=== PATIENT | female | born 1940 | race Caucasian/White ===

== ENCOUNTER 2017-02-08 06:35 | Emergency (ER) | payer MEDICARE, BC ==
[2017-02-08 07:37] LABS: CHLORIDE,CL 104 mEq/L (98-106); SODIUM,NA 140 mEq/L (136-145)
[2017-02-08 07:41] VITALS: BP 100/50
--- NOTE | 2017-02-08 07:43 | EDM.PDOC ---
ED HPI GENERAL MEDICAL PROBLEM - General Chief Complaint: General Stated Complaint: syncope Time Seen by Provider: 02/08/17 07:00 Source of Information: Reports: EMS, Family () History Limitations: Reports: Altered Mental Status - History of Present Illness INITIAL COMMENTS - FREE TEXT/NARRATIVE: Pt was brought in by [facility]. states that she has advanced dementia that has been progressing. She had gotten up to the bathroom and fell or slid out of bed. He was attempting to get her up and she had to crawl to the bathroom and then was able to get up on the stool. She had become very fearful and then had been incontinent also. He was helping her get cleaned up and was standing at the sink and was "afraid" and told him she felt light headed and he helped her to the stool to sit and she was quite excited and then slowly fainted and slid off the toilet onto the floor. He wasn't able to get her up so called for assistance. She had spent the winter in there [facility] and 1.5 weeks ago they came back to their [place] home. has been trying to find someone that would be able to come in and help them and has found someone that would be able to come in 4 hour a day for 3-4 days a week. When in [place] they had more help that would come in. They have one granddaughter in [place] otherwise doesn't have any family as both of there children have . He is hoping to keep her home as long as possible and care for her. He is now considering going back to [place] as more help is available there and it would be easier for him. She was hospitalized there about 8 wees ago for pneumonia and was in the hospital for 9 days. Since then he feels that the dementia has progressed also. She is able to get up and walk and do most of her own cares. She is very fearful and gets scared frequently and needs reassurance according to . She currently denies any pain or feeling ill. Onset: gradual - Related Data Allergies Allergy/AdvReac Type Severity Reaction Status Date / Time No Known Allergies Allergy Verified 01/10/16 16:46 Home Meds: Home Meds Aspirin [Adult Low Dose Aspirin EC] 81 mg PO DAILY 02/07/14 [History] Hydrochlorothiazide 25 mg PO DAILY 02/07/14 [History] Lisinopril [Prinivil] 40 mg PO DAILY 02/07/14 [History] Simvastatin [Zocor] 20 mg PO DAILY 02/07/14 [History] Verapamil [Verelan] 120 mg PO DAILY 02/07/14 [History] Cholecalciferol (Vitamin D3) [Vitamin D3] 2,000 units PO DAILY 06/10/14 [History ] Donepezil [Aricept] 10 mg PO DAILY 01/10/16 [History] Latanoprost 1 drop EYEBOTH BEDTIME 01/10/16 [History] Pregabalin [Lyrica] 75 mg PO BID 01/10/16 [History] Rivastigmine [Exelon] 1.5 mg PO BIDM 01/10/16 [History] Past Medical History Cardiovascular History: Reports: Hypertension, Other (see below) Other Cardiovascular History: h/o stroke x5 (3 separate episodes) 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) Other OB/BYN History: h/o one and uterine surgery with possible ovary removal Neurological History: Reports: Alzheimers disease, Other (see below) Other Neuro History: h/o stroke - Past Surgical History HEENT Surgical History: Reports: None Cardiovascular Surgical History: Reports: None Neurological Surgical History: Reports: None Social & Family History - Family History Family Medical History: Noncontributory - Tobacco Use Smoking Status *Q: Never Smoker Second Hand Smoke Exposure: No - Recreational Drug Use Recreational Drug Use: No - Living Situation & Occupation Living situation: Reports: , with spouse Occupation: retired ED ROS GENERAL - Review of Systems Review Of Systems: See Below Constitutional: Reports: No Symptoms HEENT: Reports: No Symptoms Respiratory: Reports: No Symptoms Cardiovascular: Reports: No Symptoms GI/Abdominal: Reports: No Symptoms : Reports: No Symptoms Musculoskeletal: Reports: No Symptoms Skin: Reports: No Symptoms Neurological: Reports: Confusion. Denies: Dizziness, Headache, Syncope Psychiatric: Reports: Anxiety ED EXAM, GENERAL - Physical Exam Exam: See Below Exam Limited By: Altered Mental Status General Appearance: No Apparent Distress Ears: Normal External Exam, Normal Canal, Normal TMs Ear Exam: Bilateral Ear: Auricle Normal, Canal Normal, TM normal Nose: Normal Inspection Throat/Mouth: Normal Oropharynx, No Airway Compromise Head: Atraumatic, Normocephalic Neck: Normal Inspection, Supple, Non-Tender, Full Range of Motion Respiratory/Chest: No Respiratory Distress, Lungs Clear, Normal Breath Sounds, Chest Non-Tender Cardiovascular: Regular Rate, Rhythm, No Murmur GI/Abdominal: Normal Bowel Sounds, Soft, Non-Tender, No Organomegaly, No Mass Back Exam: Normal Inspection, Full Range of Motion Extremities: Normal Inspection, Normal Range of Motion, Non-Tender, No Pedal Edema, Normal Capillary Refill Neurological: Alert, Confused, Disoriented Psychiatric: Anxious Skin Exam: Warm, Dry, Intact, Normal Color Course - Orders/Labs/Meds Orders: Active Orders 24 hr Category Date Time Status BASIC METABOLIC PANEL,BMP [CHEM] Stat Lab 02/08/17 06:52 Ordered CREATINE KINASE,CK [CHEM] Stat Lab 02/08/17 06:52 Ordered LACTATE DEHYDROGENASE,LDH [CHEM] Stat Lab 02/08/17 06:52 Ordered TROPONIN I [CHEM] Stat Lab 02/08/17 06:52 Ordered EKG 12 Lead [EK] Routine Ther 02/08/17 06:52 Ordered Labs: Laboratory Tests 02/08/17 Range/Units 07:15 WBC 11.7 H (5.0-10.0) 10^3/uL RBC 3.97 L (4.00-5.50) 10^6/uL Hgb 11.9 L (12.0-16.0) g/dL Hct 36.5 L (37.0-47.0) % MCV 91.9 (82.0-94.0) fL MCH 30.0 (27.0-32.0) pg MCHC 32.6 L (33.0-38.0) g/dL RDW Coeff of Denae 14.4 (11.0-15.0) % Plt Count 275 (150-400) 10^3/uL Neut % (Auto) 77.2 (35-85) % Lymph % (Auto) 14.5 (10-55) % [place] % (Auto) 6.6 (0-16) % Eos % (Auto) 1.2 (0-5) % Baso % (Auto) 0.5 (0-3) % Neut # (Auto) 8.99 H (1.80-7.00) 10^3/uL Lymph # (Auto) 1.69 (1.00-4.80) 10^3/uL [place] # (Auto) 0.77 (0.00-0.80) 10^3/uL Eos # (Auto) 0.14 (0.00-0.45) 10^3/uL Baso # (Auto) 0.06 10^3/uL - Re-Assessments/Exams Free Text/Narrative Re-Assessment/Exam: 02/08/17 07:45 Discussed with her safety at home. He wants to tae her home with the help that he has arranged so far. He is looking for additional help if possible Is also considering returning to [place] as help is much more readily available to them there. Departure - Departure Time of Disposition: 07:47 Disposition: Home, Self-Care 01 Condition: fair Clinical Impression: Dementia Qualifiers: Dementia type: unspecified type Dementia behavioral disturbance: without behavioral disturbance Qualified Code(s): F03.90 - Unspecified dementia without behavioral disturbance Fall Qualifiers: Encounter type: initial encounter Qualified Code(s): W19.XXXA - Unspecified fall, initial encounter - Discharge Information Forms: ED Department Discharge Additional Instructions: Continue on current meds as ordered Recheck if any changes noted. - Problem List & Annotations (1) Dementia SNOMED Code(s): 35646749 Code(s): F03.90 - UNSPECIFIED DEMENTIA WITHOUT BEHAVIORAL DISTURBANCE Status: Acute Priority: High Current Visit: Yes Qualifiers: Dementia type: unspecified type Dementia behavioral disturbance: without behavioral disturbance Qualified Code(s): F03.90 - Unspecified dementia without behavioral disturbance (2) Fall SNOMED Code(s): 6626422, 691167503 Code(s): W19.XXXA - UNSPECIFIED FALL, INITIAL ENCOUNTER Status: Acute Priority: High Current Visit: Yes Qualifiers: Encounter type: initial encounter Qualified Code(s): W19.XXXA - Unspecified fall, initial encounter - Problem List Review Problem List Initiated/Reviewed/Updated: Yes - My Orders Last 24 Hours: My Active Orders 02/08/17 06:52 BASIC METABOLIC PANEL,BMP [CHEM] Stat CREATINE KINASE,CK [CHEM] Stat LACTATE DEHYDROGENASE,LDH [CHEM] Stat TROPONIN I [CHEM] Stat EKG 12 Lead [EK] Routine - Assessment/Plan Last 24 Hours: My Active Orders 02/08/17 06:52 BASIC METABOLIC PANEL,BMP [CHEM] Stat CREATINE KINASE,CK [CHEM] Stat LACTATE DEHYDROGENASE,LDH [CHEM] Stat TROPONIN I [CHEM] Stat EKG 12 Lead [EK] Routine
== END 2017-02-08 08:00 | disposition home or self-care (01) ==
LOC: CC.ED 06:35
DX: F03.90 Unspecified dementia, unspecified severity, without behavioral disturbance, psychotic disturbance, mood disturbance, and anxiety (principal); I10 Essential (primary) hypertension; Z79.82 Long term (current) use of aspirin; Z79.899 Other long term (current) drug therapy; Z98.890 Other specified postprocedural states; W19.XXXA Unspecified fall, initial encounter
CPT/HCPCS: 36415; 80048; 82550; 83615; 84484; 85025; 93005; 93010; 99284

== ENCOUNTER 2017-04-24 18:52 | Inpatient (IN) | payer MEDICARE, BC ==
--- NOTE | 2017-04-24 19:47 | EDM.PDOC ---
ED HPI GENERAL MEDICAL PROBLEM - General Chief Complaint: General Stated Complaint: unresponsive episode with shaking Time Seen by Provider: 04/24/17 19:18 Source of Information: Reports: EMS, Family History Limitations: Reports: Altered Mental Status (patient confused due to dementia) - History of Present Illness INITIAL COMMENTS - FREE TEXT/NARRATIVE: Patient presents to ED per EMS with concerns of "shaking". relates she was lying down for her nap today and had slept for 2 hours which is not all that unusual for her. He found her to be shaking uncontrollably to the point where he couldn't stand her or get her out of bed himself so he called EMS. She has had a mild cough as of late, he was unaware of her having a fever. She was in bed with a heating blanket set at "3" and a quilt. House does have air conditioning. She does "look like her normal self now". Temp was 101 on arrival. She has a history of "many strokes" which he states has led to her dementia. She has been drinking fluids well. Did eat her lunch earlier today. Has issues with incontinence, wears a pad at night. Onset: Today, Sudden Duration: Hour(s): Location: Reports: Generalized Severity: Mild Associated Symptoms: Reports: Confusion, Cough, Fever/Chills, Weakness. Denies : Nausea/Vomiting, Seizure, Shortness of Breath, Syncope - Related Data Allergies Allergy/AdvReac Type Severity Reaction Status Date / Time No Known Allergies Allergy Verified 04/24/17 18:59 Home Meds: Home Meds Hydrochlorothiazide 25 mg PO BEDTIME 02/07/14 [History] Lisinopril [Prinivil] 40 mg PO BEDTIME 02/07/14 [History] Simvastatin [Zocor] 20 mg PO BEDTIME 02/07/14 [History] Verapamil [Verelan] 120 mg PO BEDTIME 02/07/14 [History] Cholecalciferol (Vitamin D3) [Vitamin D3] 2,000 units PO DAILY PRN 06/10/14 [ History] Donepezil [Aricept] 10 mg PO DAILY 01/10/16 [History] Pregabalin [Lyrica] 75 mg PO BID 01/10/16 [History] Rivastigmine [Exelon] 1.5 mg PO BIDM 04/12/16 [History] Past Medical History HEENT History: Reports: Cataract Cardiovascular History: Reports: High Cholesterol, Hypertension, Other (See Below) Other Cardiovascular History: h/o stroke x5 (3 separate episodes) Gastrointestinal History: Reports: Chronic Constipation, GERD 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) Other OB/BYN History: dense breasts Musculoskeletal History: Reports: Other (See Below) Other Musculoskeletal History: chronic back pain, chronic left hip pain, chronic neck pain Neurological History: Reports: CVA, Headaches, Chronic Other Neuro History: h/o stroke Psychiatric History: Reports: Dementia - Past Surgical History HEENT Surgical History: Reports: None Female Surgical History: Reports: Section, Hysterectomy, Oophorectomy Social & Family History - Family History Family Medical History: Noncontributory - Tobacco Use Smoking Status *Q: Never Smoker Second Hand Smoke Exposure: No - Recreational Drug Use Recreational Drug Use: No - Living Situation & Occupation Living situation: Reports: , with Spouse Occupation: Retired ED ROS GENERAL - Review of Systems Review Of Systems: See Below (obtained by ) Constitutional: Reports: Fever, Chills, Malaise, Weakness, Fatigue HEENT: Denies: Ear Pain, Sinus Problem, Vertigo Respiratory: Reports: Cough. Denies: Shortness of Breath Cardiovascular: Denies: Edema, Syncope Endocrine: Reports: Fatigue GI/Abdominal: Denies: Abdominal Pain, Constipation, Diarrhea, Nausea, Vomiting : Reports: Incontinence. Denies: Frequency Musculoskeletal: Reports: Neck Pain (chronic), Back Pain (chronic) Skin: Reports: No Symptoms Neurological: Reports: Confusion (chronic) Psychiatric: Reports: Other (history of dementia) ED EXAM, GENERAL - Physical Exam Exam: See Below Exam Limited By: Altered Mental Status General Appearance: Alert, WD/WN, No Apparent Distress Ears: Normal External Exam, Normal TMs Nose: Normal Inspection, Normal Mucosa, No Blood Throat/Mouth: Normal Inspection, Normal Oropharynx Head: Normocephalic Neck: Normal Inspection, Supple, Non-Tender Respiratory/Chest: No Respiratory Distress, Lungs Clear, Normal Breath Sounds Cardiovascular: Regular Rate, Rhythm GI/Abdominal: Normal Bowel Sounds, Soft, Non-Tender Extremities: Normal Inspection, Normal Range of Motion Neurological: Alert, Disoriented, Memory Loss Remote Events (chronic dementia), Memory Loss Recent Events Psychiatric: Normal Affect, Normal Mood Skin Exam: Warm, Dry Course - Vital Signs Last Recorded V/S: Last Vital Signs Temp 99.4 F 04/24/17 19:56 Pulse 95 04/24/17 18:54 Resp 20 04/24/17 18:54 BP 136/75 04/24/17 18:54 Pulse Ox 94 L 04/24/17 18:54 - Orders/Labs/Meds Orders: Active Orders 24 hr Category Date Time Status Chest 2V [CR] Stat Exams 04/24/17 19:28 Taken CULTURE BLOOD [BC] Stat Lab 04/24/17 20:19 Ordered CULTURE URINE [RM] Routine Lab 04/24/17 20:14 Received UA W/MICROSCOPIC [URIN] Stat Lab 04/24/17 19:27 Ordered Labs: Laboratory Tests 04/24/17 04/24/17 Range/Units 19:27 19:28 WBC 11.3 H (5.0-10.0) 10^3/uL RBC 4.38 (4.00-5.50) 10^6/uL Hgb 13.2 (12.0-16.0) g/dL Hct 39.7 (37.0-47.0) % MCV 90.6 (82.0-94.0) fL MCH 30.1 (27.0-32.0) pg MCHC 33.2 (33.0-38.0) g/dL RDW Coeff of Denae 14.6 (11.0-15.0) % Plt Count 247 (150-400) 10^3/uL Neut % (Auto) 84.3 (35-85) % Lymph % (Auto) 6.7 L (10-55) % [place] % (Auto) 7.5 (0-16) % Eos % (Auto) 1.2 (0-5) % Baso % (Auto) 0.3 (0-3) % Neut # (Auto) 9.51 H (1.80-7.00) 10^3/uL Lymph # (Auto) 0.75 L (1.00-4.80) 10^3/uL Bailey # (Auto) 0.84 H (0.00-0.80) 10^3/uL Eos # (Auto) 0.14 (0.00-0.45) 10^3/uL Baso # (Auto) 0.03 10^3/uL Sodium 139 (136-145) mEq/L Potassium 4.5 (3.5-5.0) mEq/L Chloride 103 (98-106) mEq/L Carbon Dioxide 27 (21-32) mmol/L BUN 27 H D (7-18) mg/dL Creatinine 1.5 H (0.6-1.0) mg/dL Est Cr Clr Drug Dosing 27.55 mL/min Estimated GFR (MDRD) 34 L (>=60) mL/min Glucose 117 H (75-99) mg/dL Calcium 8.9 (8.4-10.1) mg/dL Total Bilirubin 0.4 (0.0-1.0) mg/dL AST 12 L (15-37) U/L ALT 21 (12-78) U/L Alkaline Phosphatase 109 (46-116) U/L C-Reactive Protein 2.1 H (0.2-0.8) mg/dL Total Protein 7.3 (6.4-8.2) g/dL Albumin 3.8 (3.4-5.0) g/dL Departure - Departure Time of Disposition: 20:20 Disposition: Refer to Observation Condition: Fair Clinical Impression: UTI (urinary tract infection), Fever - Discharge Information Forms: ED Department Discharge - Problem List & Annotations (1) UTI (urinary tract infection) SNOMED Code(s): 58173480 Code(s): N39.0 - URINARY TRACT INFECTION, SITE NOT SPECIFIED Status: Acute Priority: High Current Visit: Yes Qualifiers: Encounter type: initial encounter (2) Palliative care patient SNOMED Code(s): 955602057 Code(s): Z51.5 - ENCOUNTER FOR PALLIATIVE CARE Status: Acute Priority: High Current Visit: Yes (3) Fever SNOMED Code(s): 729550165 Code(s): R50.9 - FEVER, UNSPECIFIED Status: Acute Priority: High Current Visit: Yes - Problem List Review Problem List Initiated/Reviewed/Updated: Yes - My Orders Last 24 Hours: My Active Orders 04/24/17 19:27 UA W/MICROSCOPIC [URIN] Stat 04/24/17 19:28 Chest 2V [CR] Stat 04/24/17 20:14 CULTURE URINE [RM] Routine 04/24/17 20:19 CULTURE BLOOD [BC] Stat - Assessment/Plan Admission H&P: Please use this note as an admission H&P Last 24 Hours: My Active Orders 04/24/17 19:27 UA W/MICROSCOPIC [URIN] Stat 04/24/17 19:28 Chest 2V [CR] Stat 04/24/17 20:14 CULTURE URINE [RM] Routine 04/24/17 20:19 CULTURE BLOOD [BC] Stat Assessment:: UTI Palliative Care Fever Plan: Admit to observation to Dr. Bradley for UTI. Temp down now from 101 to 99. Blood cultures done in ER. Will start IV fluids, IV Levaquin. Repeat labs in am.
[2017-04-24] MEDS ORDERED: Ondansetron 4 MG/2 ML SDV IV PRN (20:42)
[2017-04-24] MEDS ORDERED: Ondansetron 4 MG Tab.DIS PO PRN (20:42)
[2017-04-24] MEDS ORDERED: Sodium Chloride 0.9% 10 ML Syringe FLUSH PRN (20:42)
[2017-04-24] MEDS ORDERED: Temazepam 15 MG Cap PO PRN (20:42)
[2017-04-24] MEDS ORDERED: Levofloxacin/Dextrose 5%-Water 500 MG in Premix Bag 1 BAG IV ONE (20:42)
[2017-04-24] MEDS ORDERED: Magnesium Hydroxide 400 MG/5 ML Susp 30 ML Cup PO PRN (20:42)
[2017-04-24] MEDS ORDERED: Lactated Ringers 1,000 ML IV SCH (20:45)
[2017-04-24] MEDS ORDERED: Enoxaparin 30 MG/0.3 ML Syringe SUBCUT SCH (21:00)
[2017-04-24] MEDS: Hydrochlorothiazide 25 MG Tab PO SCH (21:14)
[2017-04-24] MEDS: Pregabalin 25 MG Cap PO SCH (21:14)
[2017-04-24] MEDS: Simvastatin 20 MG Tab PO SCH (21:15)
[2017-04-24] MEDS: Acetaminophen 325 MG Tab PO PRN (21:15)
[2017-04-24] MEDS: Lisinopril 20 MG Tab PO SCH (21:15)
[2017-04-25] MEDS: Acetaminophen 325 MG Tab PO PRN ×2 (04:42→19:52)
[2017-04-25] MEDS: Donepezil 5 MG Tab PO SCH (07:54)
[2017-04-25] MEDS: Pregabalin 25 MG Cap PO SCH ×2 (07:54→19:40)
[2017-04-25] MEDS ORDERED: Cholecalciferol (Vitamin D3) 1,000 Unit Tab PO PRN (08:00)
[2017-04-25] MEDS: RIVASTIGMINE 1.5 MG PO SCH ×2 (10:17→17:33)
[2017-04-25] MEDS: Albuterol/Ipratropium 3.0-0.5 MG/3 ML Neb Soln NEB SCH ×3 (10:17→20:37)
[2017-04-25] MEDS: Lisinopril 20 MG Tab PO SCH (19:40)
[2017-04-25] MEDS: Hydrochlorothiazide 25 MG Tab PO SCH (19:40)
[2017-04-25] MEDS: Simvastatin 20 MG Tab PO SCH (19:41)
[2017-04-25] MEDS ORDERED: Enoxaparin 30 MG/0.3 ML Syringe SUBCUT SCH (20:00)
[2017-04-25] MEDS ORDERED: VERAPAMIL 120 MG PO SCH (20:00)
[2017-04-25] MEDS ORDERED: Levofloxacin/Dextrose 5%-Water 250 MG in Premix Bag 1 BAG IV SCH (20:00)
--- NOTE | 2017-04-25 22:45 | PCM.PN ---
[id number] Status: Reports: Pain Controlled, Tolerating Diet - Review of Systems General: Reports: Fever, Weakness, Fatigue HEENT: Reports: No Symptoms Pulmonary: Reports: Cough. Denies: Shortness of Breath, Wheezing Cardiovascular: Denies: Chest Pain, Edema, Lightheadedness Gastrointestinal: Denies: Abdominal Pain, Nausea, Vomiting Genitourinary: Reports: Incontinence Musculoskeletal: Reports: No Symptoms Skin: Reports: No Symptoms Neurological: Reports: Confusion Psychiatric: Reports: Confusion (pleasantly confused) - Patient Data Vitals - Most Recent: Last Vital Signs Temp 98.1 F 04/25/17 22:00 Pulse 78 04/25/17 19:51 Resp 18 04/25/17 19:51 BP 127/56 L 04/25/17 19:51 Pulse Ox 93 L 04/25/17 19:51 Weight - Most Recent: 153 lb Lab Results Last 24 Hours: Laboratory Results - last 24 hr 04/25/17 04/25/17 04/25/17 Range/Units 07:45 07:45 07:50 WBC 10.6 H (5.0-10.0) 10^3/uL RBC 4.01 (4.00-5.50) 10^6/uL Hgb 12.2 (12.0-16.0) g/dL Hct 36.4 L (37.0-47.0) % MCV 90.8 (82.0-94.0) fL MCH 30.4 (27.0-32.0) pg MCHC 33.5 (33.0-38.0) g/dL RDW Coeff of Denae 14.7 (11.0-15.0) % Plt Count 230 (150-400) 10^3/uL Neut % (Auto) 72.6 (35-85) % Lymph % (Auto) 15.9 (10-55) % [place] % (Auto) 10.1 (0-16) % Eos % (Auto) 1.1 (0-5) % Baso % (Auto) 0.3 (0-3) % Neut # (Auto) 7.67 H (1.80-7.00) 10^3/uL Lymph # (Auto) 1.68 (1.00-4.80) 10^3/uL [place] # (Auto) 1.07 H (0.00-0.80) 10^3/uL Eos # (Auto) 0.12 (0.00-0.45) 10^3/uL Baso # (Auto) 0.03 10^3/uL Sodium 136 (136-145) mEq/L Potassium 4.1 (3.5-5.0) mEq/L Chloride 102 (98-106) mEq/L Carbon Dioxide 26 (21-32) mmol/L BUN 26 H (7-18) mg/dL Creatinine 1.5 H (0.6-1.0) mg/dL Est Cr Clr Drug Dosing 27.55 mL/min Estimated GFR (MDRD) 34 L (>=60) mL/min Glucose 106 H (75-99) mg/dL Calcium 8.5 (8.4-10.1) mg/dL C-Reactive Protein 6.8 H (0.2-0.8) mg/dL [id number] Pept 144 (0-1000) pg/nL Med Orders - Current: Current Medications Acetaminophen (Tylenol) 650 mg PO Q4H PRN PRN Reason: Pain (Mild 1-3)/fever Last Admin: 04/25/17 19:52 Dose: 650 mg Albuterol/Ipratropium (Duoneb 3.0-0.5 Mg/3 Ml) 3 ml NEB TIDRT [facility] Last Admin: 04/25/17 20:37 Dose: 3 ml Cholecalciferol (Vitamin D3) 2,000 units PO DAILY PRN PRN Reason: DIETARY SUPPLEMENT Donepezil HCl (Aricept) 10 mg PO DAILY [facility] Last Admin: 04/25/17 07:54 Dose: 10 mg Enoxaparin Sodium (Lovenox) 30 mg SUBCUT Q24H [facility] Last Admin: 04/25/17 19:41 Dose: 30 mg Hydrochlorothiazide (Hydrochlorothiazide) 25 mg PO BEDTIME [facility] Last Admin: 04/25/17 19:40 Dose: 25 mg Levofloxacin/Dextrose 250 mg/ (Premix) 50 mls @ 50 mls/hr IV Q24H [facility] Last Admin: 04/25/17 19:43 Dose: 50 mls/hr Lisinopril (Prinivil) 40 mg PO BEDTIME [facility] Last Admin: 04/25/17 19:40 Dose: 40 mg Magnesium Hydroxide (Milk Of Magnesia) 30 ml PO Q12H PRN PRN Reason: Constipation Ptom(Rivastigmine [ (Exelon] 1.5 Mg)) 1.5 mg PO BIDM [facility] Last Admin: 04/25/17 17:33 Dose: 1.5 mg Ptom (Verapamil Er (120 Mg)) 120 mg PO BEDTIME [facility] Last Admin: 04/25/17 19:42 Dose: 120 mg Ondansetron HCl (Zofran Odt) 4 mg PO Q4H PRN PRN Reason: nausea, able to take PO Ondansetron HCl (Zofran) 4 mg IV Q4H PRN PRN Reason: Nausea/Vomiting Pregabalin (Lyrica) 75 mg PO BID [facility] Last Admin: 04/25/17 19:40 Dose: 75 mg Simvastatin (Zocor) 20 mg PO BEDTIME [facility] Last Admin: 04/25/17 19:41 Dose: 20 mg Sodium Chloride (Saline Flush) 10 ml FLUSH ASDIRECTED PRN PRN Reason: Keep Vein Open Temazepam (Restoril) 15 mg PO BEDTIME PRN PRN Reason: Sleep Discontinued Medications Enoxaparin Sodium (Lovenox) 30 mg SUBCUT Q24H [facility] Last Admin: 04/24/17 21:18 Dose: 30 mg Lactated Ringer's (Ringers, Lactated) 1,000 mls @ 75 mls/hr IV ASDIRECTED [facility] Levofloxacin/Dextrose 500 mg/ (Premix) 100 mls @ 100 mls/hr IV ONETIME ONE Stop: 04/24/17 21:41 Last Admin: 04/24/17 21:16 Dose: 100 mls/hr - Exam General: Alert. No: Oriented HEENT: Mucous Membr. Moist/[place] Neck: Supple Lungs: Rhonchi Cardiovascular: Regular Rate, Regular Rhythm GI/Abdominal Exam: Normal Bowel Sounds, Soft, Non-Tender - Problem List & Annotations (1) UTI (urinary tract infection) SNOMED Code(s): 10842721 Code(s): N39.0 - URINARY TRACT INFECTION, SITE NOT SPECIFIED Status: Acute Priority: High Current Visit: Yes Qualifiers: Encounter type: initial encounter (2) Palliative care patient SNOMED Code(s): 227167798 Code(s): Z51.5 - ENCOUNTER FOR PALLIATIVE CARE Status: Acute Priority: High Current Visit: Yes (3) Fever SNOMED Code(s): 404595904 Code(s): R50.9 - FEVER, UNSPECIFIED Status: Acute Priority: High Current Visit: Yes (4) Dementia SNOMED Code(s): 78355228 Code(s): F03.90 - UNSPECIFIED DEMENTIA WITHOUT BEHAVIORAL DISTURBANCE Status: Chronic Priority: High Current Visit: No Qualifiers: Dementia type: unspecified type Dementia behavioral disturbance: without behavioral disturbance Qualified Code(s): F03.90 - Unspecified dementia without behavioral disturbance - Problem List Review Problem List Initiated/Reviewed/Updated: Yes - My Orders Last 24 Hours: My Active Orders 04/25/17 08:00 Cholecalciferol (Vitamin D3) [Vitamin D3] 2,000 units PO DAILY PRN Donepezil [Aricept] 10 mg PO DAILY Rivastigmine [Exelon] 1.5 mg PO BIDM 04/25/17 08:59 RT Aerosol Therapy [RC] 0900,1400,2100 04/25/17 09:00 Albuterol/Ipratropium [DuoNeb 3.0-0.5 MG/3 ML] 3 ml NEB TIDRT 04/25/17 20:00 Enoxaparin [Lovenox] 30 mg SUBCUT Q24H Verapamil [Verelan] 120 mg PO BEDTIME - Assessment Assessment:: UTI Palliative Care Fever Dementia Cough - Plan Plan:: Patient remains pleasantly confused. Does not offer any complaints. Cough is more notable and moist this am. Rhonchi noted in right base. No edema. Remained afebrile through night. Tolerated breakfast this am. IV fluids stopped this am due to increased cough. Will draw ProBNP this am. Start DuoNebs. Continue Levaquin to cover for potential pneumonia as well. Reevaluate in am.
[2017-04-26] MEDS: Donepezil 5 MG Tab PO SCH (08:04)
[2017-04-26] MEDS: Pregabalin 25 MG Cap PO SCH (08:04)
[2017-04-26] MEDS: RIVASTIGMINE 1.5 MG PO SCH (08:05)
[2017-04-26] MEDS: Albuterol/Ipratropium 3.0-0.5 MG/3 ML Neb Soln NEB SCH (08:05)
[2017-04-26 11:50] VITALS: BP 110/47
--- NOTE | 2017-04-28 21:01 | PCM.DCSUM1 ---
Discharge Summary - Hospital Course Free Text/Narrative:: Patient presented to ED per EMS due to unresponsive episode at home. relates she was difficult to arouse at home and had significant shaking. Was unable to transfer her and was concerned so presented to ED. Was found to have fever of 101. WBC 11.3, CRP 2.1. Urine positive. Did admit to Dr. Bradley. Started IV Levaquin and fluids. Is confused per norm due to her dementia but is cooperative. - Discharge Data Discharge Date: 04/26/17 Discharge Disposition: Home, Self-Care 01 Condition: Fair - Discharge Diagnosis/Problem(s) (1) UTI (urinary tract infection) SNOMED Code(s): 64371973 ICD Code: N39.0 - URINARY TRACT INFECTION, SITE NOT SPECIFIED Status: Acute Priority: High Qualifiers: Encounter type: initial encounter (2) Palliative care patient SNOMED Code(s): 496489696 ICD Code: Z51.5 - ENCOUNTER FOR PALLIATIVE CARE Status: Acute Priority: High (3) Fever SNOMED Code(s): 853358731 ICD Code: R50.9 - FEVER, UNSPECIFIED Status: Acute Priority: High (4) Dementia SNOMED Code(s): 30351128 ICD Code: F03.90 - UNSPECIFIED DEMENTIA WITHOUT BEHAVIORAL DISTURBANCE Status: Chronic Priority: High Qualifiers: Dementia type: unspecified type Dementia behavioral disturbance: without behavioral disturbance Qualified Code(s): F03.90 - Unspecified dementia without behavioral disturbance - Patient Summary/Data Complications: none Hospital Course: Hospital stay uneventful. She did have a positive response to antibiotics. No further fevers. Tolerating her meal intake. Urine culture did grow enterobacter that was susceptible to Levaquin. Does have assistance for 4 hours a day at home as well as her and will continue to have that once back at home. Does ambulate well with staff without balance issues. Vitals stable. WBC did drop to 10.6, CRP did increase to 6.8. Developed a deep cough while inpatient. Chest xray unremarkable. BNP normal. DuoNebs added during stay and responded well. - Patient Instructions Diet: Heart Healthy Diet Activity: As Tolerated Notify Provider of: Fever, Increased Pain, Nausea and/or Vomiting - Discharge Plan Prescriptions/Med Rec: Levofloxacin [Levaquin] 500 mg PO Q24H #7 tablet Home Medications: Home Meds Hydrochlorothiazide 25 mg PO BEDTIME 02/07/14 [History] Lisinopril [Prinivil] 40 mg PO BEDTIME 02/07/14 [History] Simvastatin [Zocor] 20 mg PO BEDTIME 02/07/14 [History] Verapamil [Verelan] 120 mg PO BEDTIME 02/07/14 [History] Cholecalciferol (Vitamin D3) [Vitamin D3] 2,000 units PO DAILY PRN 06/10/14 [ History] Donepezil [Aricept] 10 mg PO DAILY 01/10/16 [History] Pregabalin [Lyrica] 75 mg PO BID 01/10/16 [History] Rivastigmine [Exelon] 1.5 mg PO BIDM 01/10/16 [History] Levofloxacin [Levaquin] 500 mg PO Q24H #7 tablet 04/26/17 [Rx] Forms: ED Department Discharge Referrals: Bipin Red PA-C [Family Provider] - (Follow up with Jayme Red in 10 days) - Discharge Summary/Plan Comment DC Time >30 min.: No Discharge Summary/Plan Comment: Discharge home. Continue Levaquin. Follow up with Dr. Bradley in 2 weeks. - General Info Date of Service: 04/26/17 Admission Dx/Problem (Free Text: UTI Functional Status: Reports: Tolerating Diet, Ambulating - Review of Systems General: Reports: Weakness. Denies: Fever, Fatigue HEENT: Reports: No Symptoms Pulmonary: Reports: Cough. Denies: Shortness of Breath, Sputum Cardiovascular: Denies: Chest Pain Gastrointestinal: Denies: Abdominal Pain Genitourinary: Reports: Incontinence Musculoskeletal: Reports: No Symptoms Neurological: Reports: Confusion Psychiatric: Reports: Confusion - Patient Data Vitals - Most Recent: Last Vital Signs Temp 97.5 F 04/26/17 11:49 Pulse 71 04/26/17 11:49 Resp 16 04/26/17 11:49 BP 110/47 L 04/26/17 11:49 Pulse Ox 97 04/26/17 11:49 Weight - Most Recent: 153 lb Med Orders - Current: Current Medications Discontinued Medications Acetaminophen (Tylenol) 650 mg PO Q4H PRN PRN Reason: Pain (Mild 1-3)/fever Last Admin: 04/25/17 19:52 Dose: 650 mg Albuterol/Ipratropium (Duoneb 3.0-0.5 Mg/3 Ml) 3 ml NEB TIDRT [facility] Last Admin: 04/26/17 08:05 Dose: 3 ml Cholecalciferol (Vitamin D3) 2,000 units PO DAILY PRN PRN Reason: DIETARY SUPPLEMENT Donepezil HCl (Aricept) 10 mg PO DAILY [facility] Last Admin: 04/26/17 08:04 Dose: 10 mg Enoxaparin Sodium (Lovenox) 30 mg SUBCUT Q24H [facility] Last Admin: 04/24/17 21:18 Dose: 30 mg Enoxaparin Sodium (Lovenox) 30 mg SUBCUT Q24H [facility] Last Admin: 04/25/17 19:41 Dose: 30 mg Hydrochlorothiazide (Hydrochlorothiazide) 25 mg PO BEDTIME [facility] Last Admin: 04/25/17 19:40 Dose: 25 mg Lactated Ringer's (Ringers, Lactated) 1,000 mls @ 75 mls/hr IV ASDIRECTED [facility] Levofloxacin/Dextrose 500 mg/ (Premix) 100 mls @ 100 mls/hr IV ONETIME ONE Stop: 04/24/17 21:41 Last Admin: 04/24/17 21:16 Dose: 100 mls/hr Levofloxacin/Dextrose 250 mg/ (Premix) 50 mls @ 50 mls/hr IV Q24H [facility] Last Admin: 04/25/17 19:43 Dose: 50 mls/hr Lisinopril (Prinivil) 40 mg PO BEDTIME [facility] Last Admin: 04/25/17 19:40 Dose: 40 mg Magnesium Hydroxide (Milk Of Magnesia) 30 ml PO Q12H PRN PRN Reason: Constipation Ptom(Rivastigmine [ (Exelon] 1.5 Mg)) 1.5 mg PO BIDM [facility] Last Admin: 04/26/17 08:05 Dose: 1.5 mg Ptom (Verapamil Er (120 Mg)) 120 mg PO BEDTIME [facility] Last Admin: 04/25/17 19:42 Dose: 120 mg Ondansetron HCl (Zofran Odt) 4 mg PO Q4H PRN PRN Reason: nausea, able to take PO Ondansetron HCl (Zofran) 4 mg IV Q4H PRN PRN Reason: Nausea/Vomiting Pregabalin (Lyrica) 75 mg PO BID [facility] Last Admin: 04/26/17 08:04 Dose: 75 mg Simvastatin (Zocor) 20 mg PO BEDTIME [facility] Last Admin: 04/25/17 19:41 Dose: 20 mg Sodium Chloride (Saline Flush) 10 ml FLUSH ASDIRECTED PRN PRN Reason: Keep Vein Open Temazepam (Restoril) 15 mg PO BEDTIME PRN PRN Reason: Sleep - Exam General: Reports: Alert, Oriented (oriented to person only), Cooperative HEENT: Reports: Mucous Membr. Moist/Fouke Neck: Reports: Supple Lungs: Reports: Normal Respiratory Effort, Rhonchi Cardiovascular: Reports: Regular Rate, Regular Rhythm GI/Abdominal Exam: Normal Bowel Sounds, Soft, Non-Tender Extremities: Normal Inspection, No Pedal Edema Skin: Reports: Warm, Dry Neurological: Reports: No New Focal Deficit *Q Meaningful Use (DIS) - VTE *Q VTE Criteria *Q: - Stroke *Q Stroke Criteria *Q: - AMI *Q AMI Criteria *Q:
== END 2017-04-26 13:10 | disposition home or self-care (01) | DRG 690 ==
LOC: CC.ED 18:52 → UNDOADMIN 20:39 → CC.MS 20:39
PROVIDERS: ADMIT Physician Assistant Medical; ATTEND Family Medicine
DX: N39.0 Urinary tract infection, site not specified (principal); Z51.5 Encounter for palliative care; E78.00 Pure hypercholesterolemia, unspecified; F03.90 Unspecified dementia, unspecified severity, without behavioral disturbance, psychotic disturbance, mood disturbance, and anxiety; K59.09 Other constipation; K21.9 Gastro-esophageal reflux disease without esophagitis; Z79.899 Other long term (current) drug therapy; G89.29 Other chronic pain; M25.552 Pain in left hip; B96.89 Other specified bacterial agents as the cause of diseases classified elsewhere; R50.9 Fever, unspecified; I10 Essential (primary) hypertension; E78.5 Hyperlipidemia, unspecified; Z86.73 Personal history of transient ischemic attack (TIA), and cerebral infarction without residual deficits
CPT/HCPCS: 36415; 71020; 80048; 80053; 81001; 83880; 85025; 86140; 87086; 87088; 87186; 94640; 94640-76; 99285; A9270-GY; J1650; J1956